=== PATIENT | male | born 1960 | race African-American/Black ===

== ENCOUNTER 2018-07-21 06:15 | Inpatient (IN) | payer BC ==
[~2018-07-21] VITALS: Ht 170.2 cm; Wt 81.2 kg
[2018-07-21] MEDS ORDERED: INDOCYANINE GREEN 25 MG VIAL IV ONE (07:25)
[2018-07-21] MEDS ORDERED: SKIN ADHESIVE 0.7 GM EA TOP ONE ×2 (07:25→07:26)
[2018-07-21] MEDS ORDERED: BUPIVACAINE HCL 0.5% (5MG/ML) 50ML ONE ×2 (07:26→11:06)
[2018-07-21] MEDS ORDERED: SODIUM CHLORIDE 0.9% 1,000 ML IV SCH (07:30)
[2018-07-21 07:37] LABS: CHLORIDE 104 mEq/L (98-107)
[2018-07-21 07:40] LABS: INR 1.1; PARTIAL THROMBOPLASTIN TIME 28.7 sec (23.4-31.0); PROTHROMBIN TIME 11.3 sec (9.1-11.1)
[2018-07-21] MEDS ORDERED: LEVOFLOXACIN 500MG PREMIX 100 ML IV ONE (08:29)
[2018-07-21] MEDS ORDERED: METRONIDAZOLE 500 MG PREMIX 100 ML IV ONE (08:29)
[2018-07-21] MEDS ORDERED: LIDOCAINE HCL 1% 20ML VIAL (Pyxis) INJ ONE (09:17)
[2018-07-21] MEDS ORDERED: SUCCINYLCHOLINE CHLORIDE 200MG/10ML IV ONE (09:17)
[2018-07-21] MEDS ORDERED: FENTANYL CITRATE/PF 50MCG/ML 2ML VIAL ONE (09:18)
[2018-07-21] MEDS ORDERED: ROCURONIUM BROMIDE 10MG/ML VIAL 5ML IV ONE ×3 (09:18→10:04)
[2018-07-21] MEDS ORDERED: MIDAZOLAM HCL 2 MG/2 ML VIAL ONE (09:18)
[2018-07-21] MEDS ORDERED: PROPOFOL 200MG/20ML VIAL IV ONE (09:18)
[2018-07-21] MEDS ORDERED: CARV25TA47 PO (09:39)
[2018-07-21] MEDS ORDERED: CHOL100044 PO (09:39)
[2018-07-21] MEDS ORDERED: AMLO1TAB98 PO (09:39)
[2018-07-21] MEDS ORDERED: DIGO250T81 PO (09:39)
[2018-07-21] MEDS ORDERED: LINA5TAB PO (09:39)
[2018-07-21] MEDS ORDERED: P20 PO (09:39)
[2018-07-21] MEDS ORDERED: POTA10TA11 PO (09:39)
[2018-07-21] MEDS ORDERED: RAMI10CA19 PO (09:39)
[2018-07-21] MEDS ORDERED: NEOSTIGMINE METHYLSULFATE 1MG/ML 10 ML VIAL ONE (10:11)
[2018-07-21] MEDS ORDERED: GLYCOPYRROLATE 0.2 MG/ML 2ML VIAL ONE (10:11)
[2018-07-21] MEDS ORDERED: EPHEDRINE SULFATE 50MG/ML VIAL ONE (10:17)
[2018-07-21] MEDS ORDERED: SODIUM CHLORIDE 0.9% 10ML VIAL ONE (10:17)
[2018-07-21] MEDS ORDERED: HYDROCORTISONE SOD SUCCINATE 100 MG/2 ML VIAL IV SCH (11:15)
[2018-07-21] MEDS ORDERED: HYDROCORTISONE SOD SUCCINATE 100 MG/2 ML VIAL ONE (11:23)
[2018-07-21] MEDS ORDERED: ACETAMINOPHEN 650MG SUPP PR PRN (12:15)
[2018-07-21] MEDS ORDERED: LEVOFLOXACIN 500MG PREMIX 100 ML IV SCH (12:15)
[2018-07-21] MEDS ORDERED: ONDANSETRON HCL 4MG/2ML INJ IV PRN (12:15)
[2018-07-21] MEDS ORDERED: HYDRALAZINE 20MG/ML VIAL IV SCH (12:30)
[2018-07-21] MEDS ORDERED: MORPHINE SULFATE 2 MG/ML CPJ (NOT FOR IM USE) IV PRN (12:30)
[2018-07-21] MEDS ORDERED: HYDRALAZINE 20MG/ML VIAL ONE (12:32)
[2018-07-21] MEDS ORDERED: MORPHINE SULFATE 4 MG/ML CPJ (NOT FOR IM USE) IV ONE (12:43)
[2018-07-21 14:15] LABS: BG BASE EXCESS -7.7 mmol/L (-2.0-2.0); BG CARBOXYHEMOGLOBIN 1.1 % (0.5-1.5); BG DEOXYHEMOGLOBIN 13.1 % (0.0-5.0); BG FRACTION INSPIRED OXYGEN 60; BG HCO3 ACT 21.9 mmol/L (22.0-26.0); BG METHEMOGLOBIN 0.5 % (0.0-1.5); BG OXYGEN SATURATION 86.7 % (92.0-98.5); BG OXYHEMOGLOBIN 85.3 % (94.0-97.0); BG PCO2 60.8 mmHg (35.0-45.0); BG PH 7.175 (7.350-7.450); BG PO2 61.1 mmHg (75.0-100.0); BG PRESSURE SUPPORT 5; BG SAMPLE SITE RIGHT RADIAL; BG TOTAL HEMOGLOBIN 17.2 g/dL (12.0-18.0); BG VENT MODE MASK - CPAP
[2018-07-21] MEDS ORDERED: MORPHINE SULFATE 4 MG/ML CPJ (NOT FOR IM USE) IV PRN (14:15)
[2018-07-21] MEDS ORDERED: INSULIN REGULAR (HUMULIN R) UD 100 UNITS/ML SYR SUBCUT ONE (15:45)
[2018-07-21 16:35] VITALS: BP 132/82
[2018-07-21 16:43] VITALS: BP 132/82
[2018-07-21] MEDS: DEXT 5%/0.45% NACL KCL 20MEQ/L 1,000 ML IV SCH (18:33)
[2018-07-21 19:25] LABS: HEMATOCRIT. 46.9 % (42.0-52.0); HEMOGLOBIN. 15.5 g/dL (14.0-18.0); MEAN CORPUSCULAR HEMOGLOBIN 29.3 pg (28.0-32.0); MEAN CORPUSCULAR VOLUME 88.8 fL (80.0-94.0); PLATELET 126 x1000/uL (130-400); RED BLOOD CELL COUNT 5.28 mill/uL (4.7-6.1); RED CELL DISTRIBUTION WIDTH 14.8 % (11.6-14.6)
[2018-07-21 19:53] LABS: PLATELET ESTIMATE DECREASED
[2018-07-21 20:00] VITALS: BP 118/72
[2018-07-21] MEDS: FAMOTIDINE 20MG/2ML VIAL IV SCH (20:31)
[2018-07-21] MEDS: METRONIDAZOLE 500 MG PREMIX 100 ML IV SCH (20:31)
[2018-07-22] VITALS: BP 130/61
[2018-07-22] MEDS: METRONIDAZOLE 500 MG PREMIX 100 ML IV SCH ×2 (01:52→08:38)
[2018-07-22 04:00] VITALS: BP 129/76
[2018-07-22] MEDS: DEXT 5%/0.45% NACL KCL 20MEQ/L 1,000 ML IV SCH (07:24)
[2018-07-22 08:00] VITALS: BP 136/74
[2018-07-22] MEDS: FAMOTIDINE 20MG/2ML VIAL IV SCH ×2 (08:38→20:41)
[2018-07-22 12:00] VITALS: BP 135/75
[2018-07-22] MEDS ORDERED: LINAGLIPTIN 5MG TABLET PO PRN (12:15)
[2018-07-22] MEDS: CARVEDILOL 25MG TABLET PO SCH ×3 (12:30→20:48)
[2018-07-22] MEDS: AMLODIPINE 10MG TABLET PO SCH (13:00)
[2018-07-22] MEDS: LISINOPRIL 40MG TABLET PO SCH (13:00)
[2018-07-22] MEDS: CHOLECALCIFEROL (D3) 1000 UNIT TABLET PO SCH (13:36)
[2018-07-22] MEDS: DIGOXIN 250MCG TABLET PO SCH (14:46)
[2018-07-22 16:00] VITALS: BP 144/78
[2018-07-22 20:00] VITALS: BP 142/80
[2018-07-22] MEDS: ATORVASTATIN CALCIUM 20MG TABLET PO SCH (20:41)
[2018-07-22] MEDS: MORPHINE SULFATE 4 MG/ML CPJ (NOT FOR IM USE) IV PRN (20:46)
[2018-07-23] VITALS: BP 135/79
[2018-07-23 03:37] VITALS: BP 122/74
[2018-07-23] MEDS: MORPHINE SULFATE 4 MG/ML CPJ (NOT FOR IM USE) IV PRN ×2 (03:39→20:59)
[2018-07-23 08:00] VITALS: BP 129/81
[2018-07-23] MEDS ORDERED: AMLODIPINE PO SCH (09:00)
[2018-07-23] MEDS ORDERED: [UNRECOGNIZED DRUG - OTHER] PO SCH (09:00)
[2018-07-23] MEDS ORDERED: ATORVASTATIN PO SCH (09:00)
[2018-07-23] MEDS ORDERED: MEDICATION NOT ON FORMULARY EA (Ramipril 10 MG) PO SCH (09:00)
[2018-07-23] MEDS: CARVEDILOL 25MG TABLET PO SCH ×3 (09:00→21:00)
[2018-07-23] MEDS: LISINOPRIL 40MG TABLET PO SCH (10:34)
[2018-07-23] MEDS: FAMOTIDINE 20MG/2ML VIAL IV SCH ×2 (10:34→20:59)
[2018-07-23] MEDS: AMLODIPINE 10MG TABLET PO SCH (10:35)
[2018-07-23] MEDS: CHOLECALCIFEROL (D3) 1000 UNIT TABLET PO SCH (10:37)
[2018-07-23] MEDS: DIGOXIN 250MCG TABLET PO SCH (10:37)
[2018-07-23 12:00] VITALS: BP 124/81
[2018-07-23 16:00] VITALS: BP 119/64
[2018-07-23 20:00] VITALS: BP 122/80
[2018-07-23] MEDS: ATORVASTATIN CALCIUM 20MG TABLET PO SCH (20:57)
[2018-07-24] VITALS: BP 121/73
[2018-07-24 04:00] VITALS: BP 115/64
[2018-07-24 08:04] VITALS: BP 114/72
[2018-07-24] MEDS ORDERED: POTASSIUM CHLORIDE 10MEQ TABLET SR PO SCH (09:00)
[2018-07-24] MEDS ORDERED: PREDNISONE 20MG TABLET PO SCH (09:00)
[2018-07-24] MEDS ORDERED: MEDICATION NOT ON FORMULARY EA (Potassium Chloride (Klor-Con 10) 10 MEQ) PO SCH (09:00)
[2018-07-24] MEDS: FAMOTIDINE 20MG/2ML VIAL IV SCH (09:16)
[2018-07-24] MEDS: CHOLECALCIFEROL (D3) 1000 UNIT TABLET PO SCH (09:16)
[2018-07-24] MEDS: CARVEDILOL 25MG TABLET PO SCH (09:18)
[2018-07-24] MEDS: AMLODIPINE 10MG TABLET PO SCH (09:35)
[2018-07-24 11:01] VITALS: BP 114/72
== END 2018-07-24 11:40 | disposition home or self-care (01) | DRG 334 ==
LOC: OR 06:15 → 8WST 06:16
PROVIDERS: ADMIT Surgery; ATTEND Surgery
PROC: 0DTP4ZZ Resection of Rectum, Percutaneous Endoscopic Approach (ICD-10-PCS; 2018-07-21)
PROC: 8E0W4CZ Robotic Assisted Procedure of Trunk Region, Percutaneous Endoscopic Approach (ICD-10-PCS; principal; 2018-07-21 09:30)
DX: C18.7 Malignant neoplasm of sigmoid colon (principal); E11.9 Type 2 diabetes mellitus without complications; K66.0 Peritoneal adhesions (postprocedural) (postinfection); Z95.810 Presence of automatic (implantable) cardiac defibrillator; Z79.899 Other long term (current) drug therapy
CPT/HCPCS: 36415; 36600; 80048; 82375; 82805; 82962; 85007; 85027; 86850; 86900; 88309; 88329; 94002; 97162; 97530; 97535; A4216; J0330; J0360; J1720; J1815; J1956; J2250; J2270; J2704; J2710; J3010; J3490; J7030; J7512; Q9957

== ENCOUNTER 2019-02-22 04:03 | Inpatient (IN) | payer BC ==
[2019-02-22] VITALS (27 sets, daily range): BP systolic 85–142; BP diastolic 54–94
[~2019-02-22] VITALS: Ht 172.7 cm; Wt 93.6 kg
[~2019-02-22 04:03] MED LIST: AMLO1TAB98 PO; CAPE500T15 PO; CARV25TA47 PO; CHOL100044 PO; DIGO250T81 PO; LINA5TAB PO; P20 PO; POTA10TA11 PO; RAMI10CA19 PO
[2019-02-22] MEDS ORDERED: ETOMIDATE 2MG/ML 10ML VIAL IV ONE ×2 (04:15→04:24)
[2019-02-22] MEDS ORDERED: FAMOTIDINE 20MG/2ML VIAL IV ONE (04:15)
[2019-02-22] MEDS ORDERED: METHYLPREDNISOLONE SOD SUCC 125 MG/2 ML VIAL IV ONE (04:15)
[2019-02-22] MEDS ORDERED: DIPHENHYDRAMINE 50MG/ML VIAL IV ONE (04:15)
[2019-02-22] MEDS ORDERED: SUCCINYLCHOLINE CHLORIDE 200MG/10ML IV ONE ×2 (04:15→04:24)
[2019-02-22] MEDS ORDERED: EPINEPHRINE 1:1000 1 MG/ML AMP IM ONE (04:15)
[2019-02-22] MEDS ORDERED: TRANEXAMIC ACID 1,000 MG/10 ML IV ONE (04:15)
[2019-02-22] MEDS ORDERED: VECURONIUM BROMIDE 10 MG/VIAL IV ONE (04:24)
[2019-02-22] MEDS ORDERED: SODIUM CHLORIDE 0.9% 10ML VIAL ONE (04:24)
[2019-02-22] MEDS ORDERED: LORAZEPAM 2MG/ML CPJ IV ONE (04:30)
[2019-02-22] MEDS: PROPOFOL 10MG/ML 100ML 100 ML IV SCH ×3 (04:34→18:20)
[2019-02-22] MEDS ORDERED: SODIUM CHLORIDE 0.9% 500 ML IV ONE (04:45)
[2019-02-22 04:47] LABS: HEMATOCRIT. 46.9 % (42.0-52.0); HEMOGLOBIN. 15.7 g/dL (14.0-18.0); MEAN CORPUSCULAR HEMOGLOBIN 29.9 pg (28.0-32.0); MEAN CORPUSCULAR VOLUME 89.3 fL (80.0-94.0); MEAN PLATELET VOLUME 9.4 fl (7.4-10.4); PLATELET 96 x1000/uL (130-400); RED BLOOD CELL COUNT 5.25 mill/uL (4.7-6.1)
[2019-02-22 04:51] LABS: CHLORIDE 104 mEq/L (98-107)
[2019-02-22] MEDS ORDERED: MIDAZOLAM HCL 2 MG/2 ML VIAL IV ONE (05:15)
[2019-02-22] MEDS ORDERED: MIDAZOLAM HCL 50 MG in DEXTROSE 5% WATER 40 ML IV ONE ×3 (05:15→14:45)
[2019-02-22 05:22] LABS: BG CARBOXYHEMOGLOBIN 1.6 % (0.5-1.5); BG DEOXYHEMOGLOBIN 1.2 % (0.0-5.0); BG FRACTION INSPIRED OXYGEN 40; BG HCO3 ACT 20.3 mmol/L (22.0-26.0); BG METHEMOGLOBIN 0.3 % (0.0-1.5); BG OXYGEN SATURATION 98.8 % (92.0-98.5); BG OXYHEMOGLOBIN 96.9 % (94.0-97.0); BG PCO2 31.9 mmHg (35.0-45.0); BG PH 7.422 (7.350-7.450); BG PO2 153.7 mmHg (75.0-100.0); BG SAMPLE SITE LEFT RADIAL; BG TIDAL VOLUME(mL) 550 mL; BG TOTAL HEMOGLOBIN 15.2 g/dL (12.0-18.0); BG VENT MODE VENT - A/C; BG VENT RATE 12 set
[2019-02-22] MEDS ORDERED: FENTANYL CITRATE/PF 500 MCG in SODIUM CHLORIDE 0.9% 40 ML IV PRN ×2 (06:00→13:30)
[2019-02-22] MEDS ORDERED: ASPIRIN 300MG SUPP PR ONE (06:00)
[2019-02-22] MEDS ORDERED: FENTANYL CITRATE/PF 500 MCG in SODIUM CHLORIDE 0.9% 40 ML IV ONE ×3 (06:03→14:45)
[2019-02-22 07:02] LABS: PLATELET ESTIMATE SLIGHTLY DECREASED
[2019-02-22] MEDS ORDERED: MORPHINE SULFATE 2 MG/ML CPJ (NOT FOR IM USE) IV PRN (07:30)
[2019-02-22] MEDS: IPRATROPIUM/ALBUTEROL 0.5-3(2.5)MG/3ML NEB HHN SCH ×5 (07:30→20:29)
[2019-02-22] MEDS ORDERED: GUAIFENESIN 200MG/10ML SUGAR FREE UDC PO PRN (07:30)
[2019-02-22] MEDS ORDERED: CLONIDINE 0.1MG TABLET PO PRN (07:30)
[2019-02-22] MEDS ORDERED: DOCUSATE SODIUM 100MG CAPSULE PO PRN (07:30)
[2019-02-22] MEDS: DEXT 5%/LACTATED RINGERS 1,000 ML IV SCH ×2 (07:30→19:13)
[2019-02-22] MEDS ORDERED: IPRATROPIUM/ALBUTEROL 0.5-3(2.5)MG/3ML NEB INH PRN (07:30)
[2019-02-22] MEDS ORDERED: ONDANSETRON HCL 4MG/2ML INJ IV PRN (07:30)
[2019-02-22] MEDS ORDERED: MAGNESIUM/ALUMINUM HYDROXIDE/SIMETHICONE 30ML UDC PO PRN (07:30)
[2019-02-22] MEDS ORDERED: ACETAMINOPHEN 325MG TABLET PO PRN (07:30)
[2019-02-22] MEDS: FAMOTIDINE 20MG/2ML VIAL IV SCH ×2 (09:00→20:38)
[2019-02-22] MEDS ORDERED: ASPIRIN 325MG EC TABLET PO SCH ×2 (09:00→18:00)
[2019-02-22] MEDS: BLOOD SUGAR DIAGNOSTIC STRIP TEST SCH ×3 (09:52→17:00)
[2019-02-22] MEDS: INSULIN LISPRO 100 UNITS/ML SUBCUT SCH ×2 (10:47→13:20)
[2019-02-22] MEDS: INSULIN GLARGINE UD 100 UNITS/ML SYR SUBCUT SCH (11:11)
[2019-02-22] MEDS: NITROGLYCERIN OINT 1GM/INCH UDPKT TD SCH ×2 (14:00→21:03)
[2019-02-22] MEDS ORDERED: METHYLPREDNISOLONE SOD SUCC 125 MG/2 ML VIAL IV SCH (14:15)
[2019-02-22] MEDS ORDERED: ENOXAPARIN 100MG/ML SYR SUBCUT SCH (18:00)
[2019-02-22] MEDS ORDERED: LINA5TAB PO (18:45)
[2019-02-22] MEDS ORDERED: CALC-769 MT (18:45)
[2019-02-22] MEDS ORDERED: [UNRECOGNIZED DRUG - CODE] PO (18:45)
[2019-02-22] MEDS ORDERED: ACET-2708 PO (18:45)
[2019-02-22] MEDS ORDERED: CHOL200074 PO (18:45)
[2019-02-22] MEDS ORDERED: UBID150C PO (18:45)
[2019-02-22] MEDS ORDERED: TAMS-11 PO (18:45)
[2019-02-22] MEDS ORDERED: ASPI-1393 PO (18:45)
[2019-02-22] MEDS ORDERED: MULT-1203 MT (18:45)
[2019-02-22 20:04] LABS: INR 1.1; PROTHROMBIN TIME 11.4 sec (9.6-11.0)
[2019-02-22] MEDS: ASPIRIN 325MG TABLET PO SCH (20:39)
[2019-02-22] MEDS: ENOXAPARIN 100MG/ML SYR SUBCUT SCH (20:39)
[2019-02-22] MEDS: METHYLPREDNISOLONE SOD SUCC 125 MG/2 ML VIAL IV SCH (21:04)
[2019-02-23] VITALS (90 sets, daily range): BP systolic 81–135; BP diastolic 50–105
[2019-02-23] MEDS: INSULIN LISPRO 100 UNITS/ML SUBCUT SCH ×4 (00:26→17:57)
[2019-02-23] MEDS: IPRATROPIUM/ALBUTEROL 0.5-3(2.5)MG/3ML NEB HHN SCH ×6 (00:35→20:00)
[2019-02-23] MEDS: PROPOFOL 10MG/ML 100ML 100 ML IV SCH ×2 (04:53→11:58)
[2019-02-23] MEDS: BLOOD SUGAR DIAGNOSTIC STRIP TEST SCH ×4 (05:02→17:54)
[2019-02-23 05:03] LABS: HEMATOCRIT. 42.2 % (42.0-52.0); MEAN CORPUSCULAR HEMOGLOBIN 30.2 pg (28.0-32.0); MEAN CORPUSCULAR VOLUME 91.2 fL (80.0-94.0); MEAN PLATELET VOLUME 9.5 fl (7.4-10.4); PLATELET 79 x1000/uL (130-400); RED BLOOD CELL COUNT 4.62 mill/uL (4.7-6.1)
[2019-02-23] MEDS: NITROGLYCERIN OINT 1GM/INCH UDPKT TD SCH ×3 (05:03→21:17)
[2019-02-23] MEDS: METHYLPREDNISOLONE SOD SUCC 125 MG/2 ML VIAL IV SCH (05:06)
[2019-02-23] MEDS: ENOXAPARIN 100MG/ML SYR SUBCUT SCH (05:08)
[2019-02-23 08:05] LABS: PLATELET ESTIMATE DECREASED
[2019-02-23 08:12] LABS: BG BASE EXCESS -0.8 mmol/L (-2.0-2.0); BG CARBOXYHEMOGLOBIN 0.3 % (0.5-1.5); BG DEOXYHEMOGLOBIN 2.8 % (0.0-5.0); BG FRACTION INSPIRED OXYGEN 40; BG HCO3 ACT 23.5 mmol/L (22.0-26.0); BG METHEMOGLOBIN 1.1 % (0.0-1.5); BG OXYGEN SATURATION 97.2 % (92.0-98.5); BG OXYHEMOGLOBIN 95.8 % (94.0-97.0); BG PCO2 37.9 mmHg (35.0-45.0); BG PO2 98.2 mmHg (75.0-100.0); BG SAMPLE SITE RIGHT RADIAL; BG TIDAL VOLUME(mL) 550 mL; BG TOTAL HEMOGLOBIN 14.7 g/dL (12.0-18.0); BG VENT MODE VENT - A/C; BG VENT RATE 12 set
[2019-02-23] MEDS: ASPIRIN 325MG TABLET PO SCH (10:12)
[2019-02-23] MEDS: FAMOTIDINE 20MG/2ML VIAL IV SCH ×2 (10:12→21:16)
[2019-02-23] MEDS: CEFEPIME 1,000 MG in DEXTROSE 5% WATER 50 ML IV SCH ×2 (11:03→23:52)
[2019-02-23] MEDS: FLUCONAZOLE 200 MG/100ML BAG 100 ML IV SCH (11:04)
[2019-02-23] MEDS: METRONIDAZOLE 500 MG PREMIX 100 ML IV SCH ×2 (11:04→17:37)
[2019-02-23] MEDS: DEXT 5%/LACTATED RINGERS 1,000 ML IV SCH (11:05)
[2019-02-23] MEDS: METHYLPREDNISOLONE SOD SUCC 40 MG/ML VIAL IV SCH ×2 (11:57→17:37)
[2019-02-23 12:42] LABS: CHLORIDE 106 mEq/L (98-107)
[2019-02-23] MEDS: AZITHROMYCIN 500MG in DEXTROSE 5% WATER 250ML IV SCH (13:24)
[2019-02-23] MEDS: INSULIN GLARGINE UD 100 UNITS/ML SYR SUBCUT SCH (13:24)
[2019-02-23] MEDS: PROPOFOL 10MG/ML 100ML 100 ML IV PRN ×2 (17:29→21:23)
[2019-02-23] MEDS: MONTELUKAST SODIUM 10MG TABLET NG SCH (17:37)
[2019-02-24] VITALS (96 sets, daily range): BP systolic 87–178; BP diastolic 39–106
[2019-02-24] MEDS: METHYLPREDNISOLONE SOD SUCC 40 MG/ML VIAL IV SCH ×5 (00:02→23:35)
[2019-02-24] MEDS: BLOOD SUGAR DIAGNOSTIC STRIP TEST SCH ×5 (00:08→23:36)
[2019-02-24] MEDS: INSULIN LISPRO 100 UNITS/ML SUBCUT SCH ×5 (00:13→23:35)
[2019-02-24] MEDS: PROPOFOL 10MG/ML 100ML 100 ML IV PRN ×3 (01:44→10:28)
[2019-02-24] MEDS: METRONIDAZOLE 500 MG PREMIX 100 ML IV SCH ×3 (01:45→17:59)
[2019-02-24] MEDS: IPRATROPIUM/ALBUTEROL 0.5-3(2.5)MG/3ML NEB HHN SCH ×6 (04:09→21:01)
[2019-02-24] MEDS: NITROGLYCERIN OINT 1GM/INCH UDPKT TD SCH ×3 (06:08→22:39)
[2019-02-24] MEDS: FAMOTIDINE 20MG/2ML VIAL IV SCH ×2 (08:29→21:53)
[2019-02-24] MEDS: AZITHROMYCIN 500MG in DEXTROSE 5% WATER 250ML IV SCH (08:29)
[2019-02-24] MEDS: ASPIRIN 325MG TABLET PO SCH (08:29)
[2019-02-24 08:45] LABS: CHLORIDE 107 mEq/L (98-107)
[2019-02-24 08:49] LABS: HEMATOCRIT. 40.8 % (42.0-52.0); HEMOGLOBIN. 13.8 g/dL (14.0-18.0); MEAN CORPUSCULAR HEMOGLOBIN 30.1 pg (28.0-32.0); MEAN CORPUSCULAR VOLUME 88.6 fL (80.0-94.0); MEAN PLATELET VOLUME 9.3 fl (7.4-10.4); PLATELET 92 x1000/uL (130-400); RED BLOOD CELL COUNT 4.61 mill/uL (4.7-6.1); RED CELL DISTRIBUTION WIDTH 15.7 % (11.6-14.6)
[2019-02-24] MEDS: CEFEPIME 1,000 MG in DEXTROSE 5% WATER 50 ML IV SCH ×2 (11:53→22:39)
[2019-02-24] MEDS: FLUCONAZOLE 200 MG/100ML BAG 100 ML IV SCH (11:54)
[2019-02-24] MEDS: CARVEDILOL 6.25 MG TABLET NG SCH ×2 (12:00→21:54)
[2019-02-24 12:29] LABS: PLATELET ESTIMATE SLIGHTLY DECREASED
[2019-02-24 12:54] LABS: BG BASE EXCESS -1.1 mmol/L (-2.0-2.0); BG CARBOXYHEMOGLOBIN 0.7 % (0.5-1.5); BG DEOXYHEMOGLOBIN 3.2 % (0.0-5.0); BG FRACTION INSPIRED OXYGEN 40; BG HCO3 ACT 22.9 mmol/L (22.0-26.0); BG METHEMOGLOBIN 0.4 % (0.0-1.5); BG OXYGEN SATURATION 96.8 % (92.0-98.5); BG OXYHEMOGLOBIN 95.7 % (94.0-97.0); BG PCO2 35.9 mmHg (35.0-45.0); BG PH 7.422 (7.350-7.450); BG PO2 84.8 mmHg (75.0-100.0); BG PRESSURE SUPPORT 8; BG SAMPLE SITE RIGHT BRACHIAL; BG TOTAL HEMOGLOBIN 14.2 g/dL (12.0-18.0); BG VENT MODE VENT - CPAP
[2019-02-24] MEDS: INSULIN GLARGINE UD 100 UNITS/ML SYR SUBCUT SCH (14:09)
[2019-02-24] MEDS: FENTANYL CITRATE/PF 500 MCG in SODIUM CHLORIDE 0.9% 40 ML IV PRN ×2 (15:11→22:27)
[2019-02-24] MEDS: MIDAZOLAM HCL 100 MG in DEXT 5% WATER 80 ML IV PRN (15:11)
[2019-02-24] MEDS: MONTELUKAST SODIUM 10MG TABLET NG SCH (17:58)
[2019-02-25] VITALS (90 sets, daily range): BP systolic 97–141; BP diastolic 52–84
[2019-02-25] MEDS: IPRATROPIUM/ALBUTEROL 0.5-3(2.5)MG/3ML NEB HHN SCH ×6 (00:24→20:26)
[2019-02-25] MEDS: METRONIDAZOLE 500 MG PREMIX 100 ML IV SCH ×3 (02:16→19:01)
[2019-02-25] MEDS: METHYLPREDNISOLONE SOD SUCC 40 MG/ML VIAL IV SCH ×3 (05:56→19:02)
[2019-02-25] MEDS: MIDAZOLAM HCL 100 MG in DEXT 5% WATER 80 ML IV PRN ×3 (05:56→19:03)
[2019-02-25] MEDS: FENTANYL CITRATE/PF 500 MCG in SODIUM CHLORIDE 0.9% 40 ML IV PRN ×2 (05:56→11:00)
[2019-02-25] MEDS: NITROGLYCERIN OINT 1GM/INCH UDPKT TD SCH ×3 (05:57→21:06)
[2019-02-25 06:10] LABS: HEMATOCRIT. 40.2 % (42.0-52.0); HEMOGLOBIN. 13.7 g/dL (14.0-18.0); MEAN CORPUSCULAR HEMOGLOBIN 30.1 pg (28.0-32.0); MEAN CORPUSCULAR VOLUME 88.5 fL (80.0-94.0); MEAN PLATELET VOLUME 8.9 fl (7.4-10.4); PLATELET 82 x1000/uL (130-400); RED BLOOD CELL COUNT 4.54 mill/uL (4.7-6.1); RED CELL DISTRIBUTION WIDTH 15.6 % (11.6-14.6)
[2019-02-25] MEDS: BLOOD SUGAR DIAGNOSTIC STRIP TEST SCH ×3 (06:16→18:49)
[2019-02-25] MEDS: INSULIN LISPRO 100 UNITS/ML SUBCUT SCH ×3 (06:23→19:03)
[2019-02-25 06:30] LABS: CHLORIDE 109 mEq/L (98-107)
[2019-02-25 06:39] LABS: PLATELET ESTIMATE DECREASED
[2019-02-25] MEDS: CARVEDILOL 6.25 MG TABLET NG SCH ×3 (08:55→21:07)
[2019-02-25] MEDS: ASPIRIN 325MG TABLET PO SCH (08:55)
[2019-02-25] MEDS: AZITHROMYCIN 500MG in DEXTROSE 5% WATER 250ML IV SCH (08:55)
[2019-02-25] MEDS: FAMOTIDINE 20MG/2ML VIAL IV SCH ×2 (08:55→21:07)
[2019-02-25] MEDS: CEFEPIME 1,000 MG in DEXTROSE 5% WATER 50 ML IV SCH (11:00)
[2019-02-25] MEDS: INSULIN GLARGINE UD 100 UNITS/ML SYR SUBCUT SCH (11:30)
[2019-02-25] MEDS: METOCLOPRAMIDE HCL 10MG/2ML VIAL IV SCH ×2 (12:17→19:01)
[2019-02-25] MEDS: FLUCONAZOLE 200 MG/100ML BAG 100 ML IV SCH (15:06)
[2019-02-25] MEDS: MONTELUKAST SODIUM 10MG TABLET NG SCH (19:01)
[2019-02-26] VITALS (86 sets, daily range): BP systolic 93–138; BP diastolic 33–88
[2019-02-26] MEDS: METOCLOPRAMIDE HCL 10MG/2ML VIAL IV SCH ×4 (00:21→17:48)
[2019-02-26] MEDS: CEFEPIME 1,000 MG in DEXTROSE 5% WATER 50 ML IV SCH ×3 (00:21→22:25)
[2019-02-26] MEDS: METHYLPREDNISOLONE SOD SUCC 40 MG/ML VIAL IV SCH ×2 (00:22→05:28)
[2019-02-26] MEDS: BLOOD SUGAR DIAGNOSTIC STRIP TEST SCH ×4 (00:25→17:48)
[2019-02-26] MEDS: INSULIN LISPRO 100 UNITS/ML SUBCUT SCH ×4 (00:36→17:53)
[2019-02-26] MEDS: IPRATROPIUM/ALBUTEROL 0.5-3(2.5)MG/3ML NEB HHN SCH ×6 (00:54→20:07)
[2019-02-26] MEDS: METRONIDAZOLE 500 MG PREMIX 100 ML IV SCH ×3 (04:36→17:48)
[2019-02-26] MEDS: FENTANYL CITRATE/PF 500 MCG in SODIUM CHLORIDE 0.9% 40 ML IV PRN (05:06)
[2019-02-26] MEDS: NITROGLYCERIN OINT 1GM/INCH UDPKT TD SCH ×3 (05:29→21:46)
[2019-02-26 07:39] LABS: BG BASE EXCESS 0.6 mmol/L (-2.0-2.0); BG CARBOXYHEMOGLOBIN 0.3 % (0.5-1.5); BG HCO3 ACT 24.8 mmol/L (22.0-26.0); BG METHEMOGLOBIN 0.2 % (0.0-1.5); BG OXYHEMOGLOBIN 96.5 % (94.0-97.0); BG PCO2 38.4 mmHg (35.0-45.0); BG PH 7.428 (7.350-7.450); BG SAMPLE SITE RIGHT RADIAL; BG TIDAL VOLUME(mL) 550 mL; BG TOTAL HEMOGLOBIN 13.7 g/dL (12.0-18.0); BG VENT MODE VENT - A/C; BG VENT RATE 12 set
[2019-02-26] MEDS ORDERED: FUROSEMIDE 40MG/4ML VIAL IVP NR (09:00)
[2019-02-26] MEDS: AZITHROMYCIN 500MG in DEXTROSE 5% WATER 250ML IV SCH (09:00)
[2019-02-26] MEDS: CARVEDILOL 6.25 MG TABLET NG SCH ×2 (10:34→21:00)
[2019-02-26] MEDS: ASPIRIN 325MG TABLET PO SCH (10:34)
[2019-02-26] MEDS: FAMOTIDINE 20MG/2ML VIAL IV SCH ×2 (10:35→21:45)
[2019-02-26] MEDS: FLUCONAZOLE 200 MG/100ML BAG 100 ML IV SCH (12:00)
[2019-02-26] MEDS: INSULIN GLARGINE UD 100 UNITS/ML SYR SUBCUT SCH (12:28)
[2019-02-26] MEDS: METHYLPREDNISOLONE SOD SUCC 125 MG/2 ML VIAL IV SCH ×2 (14:00→21:45)
[2019-02-26] MEDS: MONTELUKAST SODIUM 10MG TABLET NG SCH (17:48)
[2019-02-26] MEDS: MIDAZOLAM HCL 100 MG in DEXT 5% WATER 80 ML IV PRN (18:00)
[2019-02-27] VITALS (76 sets, daily range): BP systolic 79–141; BP diastolic 44–94
[2019-02-27] MEDS: IPRATROPIUM/ALBUTEROL 0.5-3(2.5)MG/3ML NEB HHN SCH ×6 (00:07→20:12)
[2019-02-27] MEDS: BLOOD SUGAR DIAGNOSTIC STRIP TEST SCH ×5 (00:16→23:28)
[2019-02-27] MEDS: METOCLOPRAMIDE HCL 10MG/2ML VIAL IV SCH ×4 (00:21→17:22)
[2019-02-27] MEDS: METRONIDAZOLE 500 MG PREMIX 100 ML IV SCH ×3 (02:29→17:19)
[2019-02-27 04:53] LABS: HEMATOCRIT. 38.5 % (42.0-52.0); MEAN PLATELET VOLUME 9.5 fl (7.4-10.4); PLATELET 90 x1000/uL (130-400); RED BLOOD CELL COUNT 4.33 mill/uL (4.7-6.1); RED CELL DISTRIBUTION WIDTH 16.4 % (11.6-14.6)
[2019-02-27 04:56] LABS: CHLORIDE 110 mEq/L (98-107)
[2019-02-27] MEDS: NITROGLYCERIN OINT 1GM/INCH UDPKT TD SCH (05:28)
[2019-02-27] MEDS: METHYLPREDNISOLONE SOD SUCC 125 MG/2 ML VIAL IV SCH ×3 (06:31→22:27)
[2019-02-27] MEDS: INSULIN LISPRO 100 UNITS/ML SUBCUT SCH ×4 (06:32→17:20)
[2019-02-27 07:13] LABS: NUCLEATED RED BLOOD CELLS 1 /100 WBC
[2019-02-27 07:14] LABS: PLATELET ESTIMATE DECREASED
[2019-02-27] MEDS: AZITHROMYCIN 500MG in DEXTROSE 5% WATER 250ML IV SCH (08:01)
[2019-02-27] MEDS: FAMOTIDINE 20MG/2ML VIAL IV SCH ×2 (08:01→21:01)
[2019-02-27] MEDS: ASPIRIN 325MG TABLET PO SCH (08:01)
[2019-02-27] MEDS: CARVEDILOL 6.25 MG TABLET NG SCH ×2 (08:13→21:01)
[2019-02-27] MEDS: INSULIN GLARGINE UD 100 UNITS/ML SYR SUBCUT SCH (09:18)
[2019-02-27] MEDS: FENTANYL CITRATE/PF 500 MCG in SODIUM CHLORIDE 0.9% 40 ML IV PRN (09:39)
[2019-02-27] MEDS ORDERED: POTASSIUM CHLORIDE INJ 40 MEQ in DEXT 5% WATER 250 ML IV SCH (10:00)
[2019-02-27] MEDS: CEFEPIME 1,000 MG in DEXTROSE 5% WATER 50 ML IV SCH ×2 (10:08→22:27)
[2019-02-27] MEDS: FLUCONAZOLE 200 MG/100ML BAG 100 ML IV SCH (11:04)
[2019-02-27] MEDS: MONTELUKAST SODIUM 10MG TABLET NG SCH (17:19)
[2019-02-28] VITALS (94 sets, daily range): BP systolic 84–151; BP diastolic 47–98
[2019-02-28] MEDS: METOCLOPRAMIDE HCL 10MG/2ML VIAL IV SCH ×5 (00:01→23:32)
[2019-02-28] MEDS: MIDAZOLAM HCL 100 MG in DEXT 5% WATER 80 ML IV PRN (00:01)
[2019-02-28] MEDS: INSULIN LISPRO 100 UNITS/ML SUBCUT SCH ×4 (00:02→17:32)
[2019-02-28] MEDS: IPRATROPIUM/ALBUTEROL 0.5-3(2.5)MG/3ML NEB HHN SCH ×3 (00:16→08:15)
[2019-02-28] MEDS: METRONIDAZOLE 500 MG PREMIX 100 ML IV SCH ×3 (02:09→17:31)
[2019-02-28 05:40] LABS: CHLORIDE 109 mEq/L (98-107); HEMATOCRIT. 41.4 % (42.0-52.0); HEMOGLOBIN. 13.9 g/dL (14.0-18.0); MEAN CORPUSCULAR HEMOGLOBIN 29.9 pg (28.0-32.0); MEAN PLATELET VOLUME 9.4 fl (7.4-10.4); PLATELET 88 x1000/uL (130-400); RED BLOOD CELL COUNT 4.65 mill/uL (4.7-6.1); RED CELL DISTRIBUTION WIDTH 16.7 % (11.6-14.6)
[2019-02-28] MEDS: BLOOD SUGAR DIAGNOSTIC STRIP TEST SCH ×4 (06:02→23:29)
[2019-02-28] MEDS: METHYLPREDNISOLONE SOD SUCC 125 MG/2 ML VIAL IV SCH ×3 (06:06→21:33)
[2019-02-28 07:43] LABS: BG BASE EXCESS 2.8 mmol/L (-2.0-2.0); BG CARBOXYHEMOGLOBIN 0.7 % (0.5-1.5); BG DEOXYHEMOGLOBIN 3.9 % (0.0-5.0); BG HCO3 ACT 26.2 mmol/L (22.0-26.0); BG METHEMOGLOBIN 0.3 % (0.0-1.5); BG OXYGEN SATURATION 96.1 % (92.0-98.5); BG OXYHEMOGLOBIN 95.1 % (94.0-97.0); BG PCO2 36.6 mmHg (35.0-45.0); BG PH 7.473 (7.350-7.450); BG PO2 79.2 mmHg (75.0-100.0); BG SAMPLE SITE RIGHT RADIAL; BG TIDAL VOLUME(mL) 550 mL; BG TOTAL HEMOGLOBIN 14.3 g/dL (12.0-18.0); BG VENT MODE VENT - A/C; BG VENT RATE 12 set
[2019-02-28] MEDS: AZITHROMYCIN 500MG in DEXTROSE 5% WATER 250ML IV SCH (08:39)
[2019-02-28] MEDS: FAMOTIDINE 20MG/2ML VIAL IV SCH ×2 (08:40→20:43)
[2019-02-28] MEDS: CARVEDILOL 3.125 MG TABLET NG SCH ×2 (08:40→20:36)
[2019-02-28] MEDS: ASPIRIN 325MG TABLET PO SCH (08:40)
[2019-02-28] MEDS: INSULIN GLARGINE UD 100 UNITS/ML SYR SUBCUT SCH (09:27)
[2019-02-28 09:50] LABS: PLATELET ESTIMATE DECREASED
[2019-02-28] MEDS: FENTANYL CITRATE/PF 500 MCG in SODIUM CHLORIDE 0.9% 40 ML IV PRN ×2 (10:38→22:04)
[2019-02-28] MEDS: CEFEPIME 1,000 MG in DEXTROSE 5% WATER 50 ML IV SCH ×2 (10:38→23:32)
[2019-02-28] MEDS ORDERED: ALBUTEROL (0.083%) 2.5MG/3ML NEB HHN PRN (10:45)
[2019-02-28] MEDS: FLUCONAZOLE 200 MG/100ML BAG 100 ML IV SCH (12:10)
[2019-02-28] MEDS: ACETYLCYSTEINE 100MG/ML 10% VIAL 4ML INH SCH ×2 (12:35→23:54)
[2019-02-28] MEDS: ALBUTEROL (0.083%) 2.5MG/3ML NEB HHN SCH ×4 (12:35→23:54)
[2019-02-28] MEDS: MONTELUKAST SODIUM 10MG TABLET NG SCH (16:16)
[2019-03-01] VITALS (95 sets, daily range): BP systolic 78–177; BP diastolic 42–106
[2019-03-01] MEDS: INSULIN LISPRO 100 UNITS/ML SUBCUT SCH ×4 (00:15→17:47)
[2019-03-01] MEDS: METRONIDAZOLE 500 MG PREMIX 100 ML IV SCH ×3 (01:20→17:43)
[2019-03-01] MEDS: ALBUTEROL (0.083%) 2.5MG/3ML NEB HHN SCH ×5 (03:54→20:29)
[2019-03-01] MEDS: BLOOD SUGAR DIAGNOSTIC STRIP TEST SCH ×3 (05:32→17:44)
[2019-03-01] MEDS: METOCLOPRAMIDE HCL 10MG/2ML VIAL IV SCH ×4 (05:42→23:15)
[2019-03-01] MEDS: METHYLPREDNISOLONE SOD SUCC 125 MG/2 ML VIAL IV SCH ×3 (05:42→22:08)
[2019-03-01 07:16] LABS: BG BASE EXCESS 2.2 mmol/L (-2.0-2.0); BG CARBOXYHEMOGLOBIN 0.4 % (0.5-1.5); BG DEOXYHEMOGLOBIN 2.9 % (0.0-5.0); BG METHEMOGLOBIN 0.2 % (0.0-1.5); BG OXYGEN SATURATION 97.1 % (92.0-98.5); BG OXYHEMOGLOBIN 96.5 % (94.0-97.0); BG PCO2 42.6 mmHg (35.0-45.0); BG SAMPLE SITE RIGHT RADIAL; BG TIDAL VOLUME(mL) 550 mL; BG TOTAL HEMOGLOBIN 14.4 g/dL (12.0-18.0); BG VENT MODE VENT - A/C; BG VENT RATE 12 set
[2019-03-01] MEDS: AZITHROMYCIN 500MG in DEXTROSE 5% WATER 250ML IV SCH (08:41)
[2019-03-01] MEDS: ACETYLCYSTEINE 100MG/ML 10% VIAL 4ML INH SCH ×2 (08:45→17:02)
[2019-03-01] MEDS: CARVEDILOL 3.125 MG TABLET NG SCH ×2 (08:52→20:17)
[2019-03-01] MEDS: FAMOTIDINE 20MG/2ML VIAL IV SCH ×2 (10:03→20:38)
[2019-03-01] MEDS: ASPIRIN 325MG TABLET PO SCH (10:03)
[2019-03-01] MEDS: INSULIN GLARGINE UD 100 UNITS/ML SYR SUBCUT SCH ×2 (10:12→22:09)
[2019-03-01] MEDS: CEFEPIME 1,000 MG in DEXTROSE 5% WATER 50 ML IV SCH ×2 (11:15→23:15)
[2019-03-01] MEDS ORDERED: LORAZEPAM 2MG/ML CPJ IV PRN (11:30)
[2019-03-01] MEDS: FLUCONAZOLE 200 MG/100ML BAG 100 ML IV SCH (12:32)
[2019-03-01 14:11] LABS: BG BASE EXCESS 1.6 mmol/L (-2.0-2.0); BG CARBOXYHEMOGLOBIN 0.6 % (0.5-1.5); BG DEOXYHEMOGLOBIN 6.6 % (0.0-5.0); BG FRACTION INSPIRED OXYGEN 40; BG HCO3 ACT 25.6 mmol/L (22.0-26.0); BG METHEMOGLOBIN 0.2 % (0.0-1.5); BG OXYGEN SATURATION 93.3 % (92.0-98.5); BG OXYHEMOGLOBIN 92.6 % (94.0-97.0); BG PCO2 38.3 mmHg (35.0-45.0); BG PH 7.443 (7.350-7.450); BG PO2 66.2 mmHg (75.0-100.0); BG PRESSURE SUPPORT 14; BG SAMPLE SITE RIGHT RADIAL; BG TIDAL VOLUME(mL) 550 mL; BG TOTAL HEMOGLOBIN 16.1 g/dL (12.0-18.0); BG VENT MODE VENT - SIMV; BG VENT RATE 8 set
[2019-03-01] MEDS ORDERED: MIDAZOLAM HCL 50 MG in DEXTROSE 5% WATER 40 ML IV PRN (15:00)
[2019-03-01] MEDS: MIDAZOLAM HCL 100 MG in DEXT 5% WATER 80 ML IV PRN (15:10)
[2019-03-01] MEDS: FENTANYL CITRATE/PF 500 MCG in SODIUM CHLORIDE 0.9% 40 ML IV PRN ×2 (15:12→23:57)
[2019-03-01] MEDS: MONTELUKAST SODIUM 10MG TABLET NG SCH (17:43)
[2019-03-01] MEDS: FUROSEMIDE 20MG/2ML VIAL IVP SCH (19:34)
[2019-03-02] VITALS (105 sets, daily range): BP systolic 78–182; BP diastolic 41–129
[2019-03-02] MEDS: BLOOD SUGAR DIAGNOSTIC STRIP TEST SCH ×4 (00:03→17:27)
[2019-03-02] MEDS: INSULIN LISPRO 100 UNITS/ML SUBCUT SCH ×4 (00:09→17:26)
[2019-03-02] MEDS: ACETYLCYSTEINE 100MG/ML 10% VIAL 4ML INH SCH ×3 (01:00→16:50)
[2019-03-02] MEDS: ALBUTEROL (0.083%) 2.5MG/3ML NEB HHN SCH ×6 (01:00→20:58)
[2019-03-02] MEDS: METRONIDAZOLE 500 MG PREMIX 100 ML IV SCH ×3 (01:36→17:26)
[2019-03-02] MEDS: METOCLOPRAMIDE HCL 10MG/2ML VIAL IV SCH ×3 (05:09→17:25)
[2019-03-02] MEDS: METHYLPREDNISOLONE SOD SUCC 125 MG/2 ML VIAL IV SCH (05:09)
[2019-03-02] MEDS: FAMOTIDINE 20MG/2ML VIAL IV SCH ×2 (07:52→21:24)
[2019-03-02] MEDS: ASPIRIN 325MG TABLET PO SCH (07:52)
[2019-03-02] MEDS: FUROSEMIDE 20MG/2ML VIAL IVP SCH ×2 (07:53→16:27)
[2019-03-02] MEDS: AZITHROMYCIN 500MG in DEXTROSE 5% WATER 250ML IV SCH (07:53)
[2019-03-02] MEDS: CARVEDILOL 3.125 MG TABLET NG SCH ×3 (08:08→21:24)
[2019-03-02] MEDS: FENTANYL CITRATE/PF 500 MCG in SODIUM CHLORIDE 0.9% 40 ML IV PRN (08:08)
[2019-03-02 08:55] LABS: HEMATOCRIT. 43.3 % (42.0-52.0); HEMOGLOBIN. 14.6 g/dL (14.0-18.0); MEAN CORPUSCULAR HEMOGLOBIN 30.3 pg (28.0-32.0); MEAN CORPUSCULAR VOLUME 89.5 fL (80.0-94.0); MEAN PLATELET VOLUME 8.8 fl (7.4-10.4); PLATELET 80 x1000/uL (130-400); RED BLOOD CELL COUNT 4.84 mill/uL (4.7-6.1); RED CELL DISTRIBUTION WIDTH 17.6 % (11.6-14.6)
[2019-03-02 09:02] LABS: CHLORIDE 108 mEq/L (98-107)
[2019-03-02 09:09] LABS: PHOSPHORUS 2.2 mg/dL (2.5-4.9)
[2019-03-02] MEDS ORDERED: LORAZEPAM 2MG/ML CPJ IV NR ×3 (09:30→13:15)
[2019-03-02] MEDS ORDERED: FUROSEMIDE 20MG/2ML VIAL IVP NR (10:00)
[2019-03-02] MEDS: CEFEPIME 1,000 MG in DEXTROSE 5% WATER 50 ML IV SCH ×2 (10:02→23:58)
[2019-03-02] MEDS: FLUCONAZOLE 200 MG/100ML BAG 100 ML IV SCH (10:57)
[2019-03-02] MEDS ORDERED: POTASSIUM PHOS,M-BASIC-D-BASIC 10 MMOL in DEXT 5% WATER 246.6667 ML IV NR (11:30)
[2019-03-02 12:37] LABS: PLATELET ESTIMATE DECREASED
[2019-03-02 13:22] LABS: BG BASE EXCESS -0.4 mmol/L (-2.0-2.0); BG CARBOXYHEMOGLOBIN 0.4 % (0.5-1.5); BG FRACTION INSPIRED OXYGEN 40; BG HCO3 ACT 22.7 mmol/L (22.0-26.0); BG METHEMOGLOBIN 0.3 % (0.0-1.5); BG OXYHEMOGLOBIN 93.3 % (94.0-97.0); BG PCO2 33.4 mmHg (35.0-45.0); BG PH 7.451 (7.350-7.450); BG PO2 70.1 mmHg (75.0-100.0); BG PRESSURE SUPPORT 8; BG SAMPLE SITE RIGHT RADIAL; BG TOTAL HEMOGLOBIN 16.3 g/dL (12.0-18.0); BG VENT MODE VENT - CPAP
[2019-03-02] MEDS ORDERED: RACEPINEPHRINE 2.25% 0.5ML NEB VIAL HHN PRN (13:30)
[2019-03-02] MEDS: METHYLPREDNISOLONE SOD SUCC 40 MG/ML VIAL IV SCH ×2 (13:54→21:24)
[2019-03-02] MEDS ORDERED: RACEPINEPHRINE 2.25% 0.5ML NEB VIAL HHN NR (14:00)
[2019-03-02] MEDS: LORAZEPAM 2MG/ML CPJ IV PRN ×2 (14:50→20:29)
[2019-03-02] MEDS: MONTELUKAST SODIUM 10MG TABLET NG SCH (16:27)
[2019-03-02 17:44] LABS: BG BASE EXCESS -0.5 mmol/L (-2.0-2.0); BG CARBOXYHEMOGLOBIN 0.3 % (0.5-1.5); BG DEOXYHEMOGLOBIN 6.4 % (0.0-5.0); BG FRACTION INSPIRED OXYGEN 98; BG HCO3 ACT 21.7 mmol/L (22.0-26.0); BG METHEMOGLOBIN 0.4 % (0.0-1.5); BG OXYGEN SATURATION 93.6 % (92.0-98.5); BG OXYHEMOGLOBIN 92.9 % (94.0-97.0); BG PH 7.478 (7.350-7.450); BG SAMPLE SITE RIGHT RADIAL; BG TOTAL HEMOGLOBIN 16.3 g/dL (12.0-18.0); BG VENT MODE MASK - AEROSOL
[2019-03-02] MEDS: INSULIN GLARGINE UD 100 UNITS/ML SYR SUBCUT SCH (21:25)
[2019-03-03] VITALS (45 sets, daily range): BP systolic 97–173; BP diastolic 24–115
[2019-03-03] MEDS: METOCLOPRAMIDE HCL 10MG/2ML VIAL IV SCH ×4 (00:05→17:49)
[2019-03-03] MEDS: BLOOD SUGAR DIAGNOSTIC STRIP TEST SCH ×4 (00:16→17:42)
[2019-03-03] MEDS: INSULIN LISPRO 100 UNITS/ML SUBCUT SCH ×4 (00:22→17:49)
[2019-03-03] MEDS: ACETYLCYSTEINE 100MG/ML 10% VIAL 4ML INH SCH ×3 (00:51→16:40)
[2019-03-03] MEDS: ALBUTEROL (0.083%) 2.5MG/3ML NEB HHN SCH ×6 (00:51→20:46)
[2019-03-03] MEDS: METRONIDAZOLE 500 MG PREMIX 100 ML IV SCH ×3 (02:32→19:28)
[2019-03-03] MEDS: LORAZEPAM 2MG/ML CPJ IV PRN (02:32)
[2019-03-03] MEDS: METHYLPREDNISOLONE SOD SUCC 40 MG/ML VIAL IV SCH (05:37)
[2019-03-03 06:08] LABS: CHLORIDE 105 mEq/L (98-107)
[2019-03-03 06:21] LABS: PHOSPHORUS 2.3 mg/dL (2.5-4.9)
[2019-03-03] MEDS: FAMOTIDINE 20MG/2ML VIAL IV SCH ×2 (08:42→21:23)
[2019-03-03] MEDS: CARVEDILOL 3.125 MG TABLET NG SCH ×2 (08:42→21:00)
[2019-03-03] MEDS: ASPIRIN 325MG TABLET PO SCH (08:42)
[2019-03-03] MEDS: FUROSEMIDE 20MG/2ML VIAL IVP SCH ×2 (08:42→17:49)
[2019-03-03] MEDS ORDERED: POTASSIUM CHLORIDE 20MEQ/PACKET PO SCH (09:45)
[2019-03-03] MEDS ORDERED: LACTULOSE 20G/30ML UDC PO NR (10:00)
[2019-03-03] MEDS: CEFEPIME 1,000 MG in DEXTROSE 5% WATER 50 ML IV SCH ×2 (10:53→22:22)
[2019-03-03] MEDS: DOCUSATE SODIUM 100MG CAPSULE PO SCH ×2 (10:53→17:49)
[2019-03-03] MEDS ORDERED: POTASSIUM PHOS,M-BASIC-D-BASIC 15 MMOL in DEXT 5% WATER 245 ML IV SCH (11:00)
[2019-03-03] MEDS: QUETIAPINE FUMARATE 25MG TABLET PO SCH (11:00)
[2019-03-03] MEDS ORDERED: KCL 20MEQ/100ML PREMIX 100 ML IV NR (11:00)
[2019-03-03] MEDS: AZITHROMYCIN 500MG in DEXTROSE 5% WATER 250ML IV SCH (11:11)
[2019-03-03] MEDS: FLUCONAZOLE 200 MG/100ML BAG 100 ML IV SCH (13:09)
[2019-03-03] MEDS: MONTELUKAST SODIUM 10MG TABLET NG SCH (17:49)
[2019-03-03] MEDS: INSULIN GLARGINE UD 100 UNITS/ML SYR SUBCUT SCH (21:54)
[2019-03-04] VITALS (12 sets, daily range): BP systolic 90–131; BP diastolic 52–75
[2019-03-04] MEDS: METOCLOPRAMIDE HCL 10MG/2ML VIAL IV SCH ×2 (00:06→05:38)
[2019-03-04] MEDS: BLOOD SUGAR DIAGNOSTIC STRIP TEST SCH ×4 (00:14→18:56)
[2019-03-04] MEDS: ALBUTEROL (0.083%) 2.5MG/3ML NEB HHN SCH ×5 (00:40→20:50)
[2019-03-04] MEDS: ACETYLCYSTEINE 100MG/ML 10% VIAL 4ML INH SCH ×3 (00:40→15:26)
[2019-03-04] MEDS: LORAZEPAM 2MG/ML CPJ IV PRN (02:14)
[2019-03-04] MEDS: METRONIDAZOLE 500 MG PREMIX 100 ML IV SCH ×3 (02:14→18:56)
[2019-03-04] MEDS: INSULIN LISPRO 100 UNITS/ML SUBCUT SCH ×4 (05:38→18:57)
[2019-03-04 06:12] LABS: HEMATOCRIT. 41.9 % (42.0-52.0); HEMOGLOBIN. 13.9 g/dL (14.0-18.0); MEAN CORPUSCULAR HEMOGLOBIN 29.7 pg (28.0-32.0); MEAN CORPUSCULAR VOLUME 89.7 fL (80.0-94.0); MEAN PLATELET VOLUME 8.8 fl (7.4-10.4); PLATELET 76 x1000/uL (130-400); RED BLOOD CELL COUNT 4.67 mill/uL (4.7-6.1); RED CELL DISTRIBUTION WIDTH 17.2 % (11.6-14.6)
[2019-03-04 06:14] LABS: CHLORIDE 104 mEq/L (98-107)
[2019-03-04] MEDS ORDERED: METHYLPREDNISOLONE SOD SUCC 40 MG/ML VIAL IV SCH (09:00)
[2019-03-04] MEDS: ASPIRIN 325MG TABLET PO SCH (09:00)
[2019-03-04] MEDS: FUROSEMIDE 20MG/2ML VIAL IVP SCH ×2 (09:27→18:09)
[2019-03-04] MEDS: DOCUSATE SODIUM 100MG CAPSULE PO SCH ×2 (09:27→18:09)
[2019-03-04] MEDS: FAMOTIDINE 20MG/2ML VIAL IV SCH ×2 (09:27→21:40)
[2019-03-04] MEDS: CARVEDILOL 3.125 MG TABLET NG SCH ×2 (09:27→21:40)
[2019-03-04] MEDS: QUETIAPINE FUMARATE 25MG TABLET PO SCH (09:28)
[2019-03-04] MEDS: AZITHROMYCIN 500MG in DEXTROSE 5% WATER 250ML IV SCH (09:39)
[2019-03-04] MEDS ORDERED: POTASSIUM CHLORIDE 20MEQ/PACKET NG NR (09:45)
[2019-03-04 10:41] LABS: PLATELET ESTIMATE DECREASED
[2019-03-04] MEDS ORDERED: FLUMAZENIL 0.1 MG/ML 5ML VIAL IV ONE ×2 (11:45→12:03)
[2019-03-04 12:11] LABS: BG BASE EXCESS 2.9 mmol/L (-2.0-2.0); BG CARBOXYHEMOGLOBIN 0.4 % (0.5-1.5); BG FRACTION INSPIRED OXYGEN 35; BG HCO3 ACT 26.7 mmol/L (22.0-26.0); BG METHEMOGLOBIN 0.3 % (0.0-1.5); BG OXYHEMOGLOBIN 97.3 % (94.0-97.0); BG PH 7.464 (7.350-7.450); BG PO2 112.3 mmHg (75.0-100.0); BG SAMPLE SITE RIGHT RADIAL; BG TOTAL HEMOGLOBIN 13.5 g/dL (12.0-18.0); BG VENT MODE MASK - AEROSOL
[2019-03-04] MEDS: CEFEPIME 1,000 MG in DEXTROSE 5% WATER 50 ML IV SCH ×2 (12:49→23:14)
[2019-03-04] MEDS: FLUCONAZOLE 200 MG/100ML BAG 100 ML IV SCH (18:09)
[2019-03-04] MEDS: MONTELUKAST SODIUM 10MG TABLET NG SCH (18:09)
[2019-03-04] MEDS: INSULIN GLARGINE UD 100 UNITS/ML SYR SUBCUT SCH (21:41)
[2019-03-05] VITALS (11 sets, daily range): BP systolic 90–115; BP diastolic 54–87
[2019-03-05] MEDS: INSULIN LISPRO 100 UNITS/ML SUBCUT SCH ×4 (00:26→17:40)
[2019-03-05] MEDS: ALBUTEROL (0.083%) 2.5MG/3ML NEB HHN SCH ×5 (00:35→20:15)
[2019-03-05] MEDS: ACETYLCYSTEINE 100MG/ML 10% VIAL 4ML INH SCH ×3 (00:35→15:50)
[2019-03-05] MEDS: METRONIDAZOLE 500 MG PREMIX 100 ML IV SCH ×3 (02:05→17:39)
[2019-03-05] MEDS: BLOOD SUGAR DIAGNOSTIC STRIP TEST SCH ×4 (06:00→17:40)
[2019-03-05 06:25] LABS: CHLORIDE 105 mEq/L (98-107)
[2019-03-05 06:38] LABS: HEMATOCRIT. 42.1 % (42.0-52.0); HEMOGLOBIN. 14.3 g/dL (14.0-18.0); MEAN CORPUSCULAR HEMOGLOBIN 30.3 pg (28.0-32.0); MEAN PLATELET VOLUME 8.8 fl (7.4-10.4); PLATELET 70 x1000/uL (130-400); RED BLOOD CELL COUNT 4.73 mill/uL (4.7-6.1); RED CELL DISTRIBUTION WIDTH 18.1 % (11.6-14.6)
[2019-03-05] MEDS ORDERED: POTASSIUM CHLORIDE 20MEQ/PACKET NG SCH (08:00)
[2019-03-05] MEDS: DOCUSATE SODIUM 100MG CAPSULE PO SCH (09:00)
[2019-03-05] MEDS: FAMOTIDINE 20MG/2ML VIAL IV SCH ×2 (09:29→21:15)
[2019-03-05] MEDS: AZITHROMYCIN 500MG in DEXTROSE 5% WATER 250ML IV SCH (09:29)
[2019-03-05] MEDS: CARVEDILOL 3.125 MG TABLET NG SCH ×2 (09:30→21:00)
[2019-03-05] MEDS: FUROSEMIDE 20MG/2ML VIAL IVP SCH ×2 (09:30→17:39)
[2019-03-05] MEDS: FLUCONAZOLE 200 MG/100ML BAG 100 ML IV SCH (11:40)
[2019-03-05 12:12] LABS: PLATELET ESTIMATE DECREASED
[2019-03-05] MEDS: CEFEPIME 1,000 MG in DEXTROSE 5% WATER 50 ML IV SCH ×2 (13:12→22:47)
[2019-03-05] MEDS: DOCUSATE SODIUM SUGAR FREE 100MG/10ML UDC NG SCH (17:39)
[2019-03-05] MEDS: MONTELUKAST SODIUM 10MG TABLET NG SCH (17:39)
[2019-03-05] MEDS: NYSTATIN POWDER 15GM TOP SCH (18:23)
[2019-03-05] MEDS: INSULIN GLARGINE UD 100 UNITS/ML SYR SUBCUT SCH (22:47)
[2019-03-06] VITALS (14 sets, daily range): BP systolic 91–134; BP diastolic 45–111
[2019-03-06] MEDS: ALBUTEROL (0.083%) 2.5MG/3ML NEB HHN SCH ×6 (00:02→20:10)
[2019-03-06] MEDS: BLOOD SUGAR DIAGNOSTIC STRIP TEST SCH ×3 (00:26→11:19)
[2019-03-06] MEDS: INSULIN LISPRO 100 UNITS/ML SUBCUT SCH ×3 (06:00→12:00)
[2019-03-06 08:25] LABS: HEMATOCRIT. 42.2 % (42.0-52.0); HEMOGLOBIN. 14.2 g/dL (14.0-18.0); MEAN CORPUSCULAR HEMOGLOBIN 30.1 pg (28.0-32.0); MEAN CORPUSCULAR VOLUME 89.4 fL (80.0-94.0); MEAN PLATELET VOLUME 10.7 fl (7.4-10.4); PLATELET 70 x1000/uL (130-400); RED BLOOD CELL COUNT 4.72 mill/uL (4.7-6.1); RED CELL DISTRIBUTION WIDTH 18.2 % (11.6-14.6)
[2019-03-06 08:55] LABS: CHLORIDE 102 mEq/L (98-107)
[2019-03-06] MEDS: FAMOTIDINE 20MG/2ML VIAL IV SCH ×2 (09:34→21:37)
[2019-03-06] MEDS: DOCUSATE SODIUM SUGAR FREE 100MG/10ML UDC NG SCH ×3 (09:34→18:07)
[2019-03-06] MEDS: CARVEDILOL 3.125 MG TABLET NG SCH ×2 (09:35→21:37)
[2019-03-06] MEDS: NYSTATIN POWDER 15GM TOP SCH ×3 (09:37→18:08)
[2019-03-06] MEDS ORDERED: KCL 20MEQ/100ML PREMIX 100 ML IV NR (10:00)
[2019-03-06] MEDS: FUROSEMIDE 20MG/2ML VIAL IVP SCH ×2 (11:18→18:07)
[2019-03-06 11:41] LABS: PLATELET ESTIMATE DECREASED
[2019-03-06] MEDS: MONTELUKAST SODIUM 10MG TABLET NG SCH (18:07)
[2019-03-06] MEDS: INSULIN GLARGINE UD 100 UNITS/ML SYR SUBCUT SCH (21:38)
[2019-03-07] VITALS (12 sets, daily range): BP systolic 97–123; BP diastolic 58–82
[2019-03-07] MEDS: ALBUTEROL (0.083%) 2.5MG/3ML NEB HHN SCH ×6 (00:20→21:47)
[2019-03-07] MEDS: FUROSEMIDE 20MG/2ML VIAL IVP SCH ×2 (06:56→17:35)
[2019-03-07 08:12] LABS: HEMATOCRIT. 46.1 % (42.0-52.0); HEMOGLOBIN. 15.6 g/dL (14.0-18.0); MEAN CORPUSCULAR HEMOGLOBIN 30.3 pg (28.0-32.0); MEAN CORPUSCULAR VOLUME 89.6 fL (80.0-94.0); PLATELET 63 x1000/uL (130-400); RED BLOOD CELL COUNT 5.15 mill/uL (4.7-6.1); RED CELL DISTRIBUTION WIDTH 18.2 % (11.6-14.6)
[2019-03-07 08:30] LABS: CHLORIDE 98 mEq/L (98-107)
[2019-03-07] MEDS: DOCUSATE SODIUM SUGAR FREE 100MG/10ML UDC NG SCH ×2 (09:35→16:52)
[2019-03-07] MEDS: CARVEDILOL 3.125 MG TABLET NG SCH ×2 (09:35→21:33)
[2019-03-07] MEDS: FAMOTIDINE 20MG/2ML VIAL IV SCH ×2 (09:35→21:32)
[2019-03-07] MEDS: NYSTATIN POWDER 15GM TOP SCH ×3 (09:36→17:35)
[2019-03-07 13:21] LABS: PLATELET ESTIMATE SLIGHTLY DECREASED
[2019-03-07] MEDS: BLOOD SUGAR DIAGNOSTIC STRIP TEST SCH ×2 (16:52→21:00)
[2019-03-07] MEDS: INSULIN LISPRO 100 UNITS/ML SUBCUT SCH ×2 (16:53→21:00)
[2019-03-07] MEDS: MONTELUKAST SODIUM 10MG TABLET NG SCH (17:34)
[2019-03-07] MEDS: INSULIN GLARGINE UD 100 UNITS/ML SYR SUBCUT SCH (21:35)
[2019-03-08] VITALS (11 sets, daily range): BP systolic 94–123; BP diastolic 52–85
[2019-03-08] MEDS: ALBUTEROL (0.083%) 2.5MG/3ML NEB HHN SCH ×6 (01:20→21:00)
[2019-03-08] MEDS: BLOOD SUGAR DIAGNOSTIC STRIP TEST SCH ×4 (06:50→21:00)
[2019-03-08] MEDS: FUROSEMIDE 20MG/2ML VIAL IVP SCH ×2 (07:01→17:14)
[2019-03-08] MEDS: INSULIN LISPRO 100 UNITS/ML SUBCUT SCH ×4 (07:20→21:00)
[2019-03-08] MEDS: FAMOTIDINE 20MG/2ML VIAL IV SCH ×2 (08:55→22:01)
[2019-03-08] MEDS: CARVEDILOL 3.125 MG TABLET NG SCH ×2 (08:55→22:02)
[2019-03-08] MEDS: DOCUSATE SODIUM SUGAR FREE 100MG/10ML UDC NG SCH ×2 (08:55→17:00)
[2019-03-08] MEDS: NYSTATIN POWDER 15GM TOP SCH ×3 (08:55→17:14)
[2019-03-08] MEDS: MONTELUKAST SODIUM 10MG TABLET NG SCH (17:13)
[2019-03-08] MEDS: INSULIN GLARGINE UD 100 UNITS/ML SYR SUBCUT SCH (22:05)
[2019-03-08] MEDS ORDERED: LORAZEPAM 2MG/ML CPJ IV PRN (23:00)
[2019-03-08] MEDS ORDERED: QUETIAPINE FUMARATE 50MG TABLET PO SCH (23:00)
[2019-03-08] MEDS ORDERED: DIPHENHYDRAMINE 50MG/ML VIAL IV PRN (23:00)
[2019-03-09] VITALS (11 sets, daily range): BP systolic 89–139; BP diastolic 50–84
[2019-03-09] MEDS: BLOOD SUGAR DIAGNOSTIC STRIP TEST SCH ×4 (06:50→21:34)
[2019-03-09 06:58] LABS: HEMATOCRIT. 43.1 % (42.0-52.0); HEMOGLOBIN. 14.6 g/dL (14.0-18.0); MEAN CORPUSCULAR HEMOGLOBIN 30.3 pg (28.0-32.0); MEAN CORPUSCULAR VOLUME 89.6 fL (80.0-94.0); MEAN PLATELET VOLUME 9.4 fl (7.4-10.4); PLATELET 72 x1000/uL (130-400); RED BLOOD CELL COUNT 4.81 mill/uL (4.7-6.1)
[2019-03-09] MEDS: INSULIN LISPRO 100 UNITS/ML SUBCUT SCH ×5 (07:20→21:00)
[2019-03-09] MEDS: DEXTROSE 50% WATER 50ML SYRINGE IV PRN ×3 (07:24→16:47)
[2019-03-09] MEDS: ALBUTEROL (0.083%) 2.5MG/3ML NEB HHN SCH ×3 (08:07→21:45)
[2019-03-09] MEDS: FAMOTIDINE 20MG/2ML VIAL IV SCH ×2 (08:16→21:45)
[2019-03-09 08:17] LABS: CHLORIDE 99 mEq/L (98-107)
[2019-03-09] MEDS: QUETIAPINE FUMARATE 50MG TABLET PO SCH ×2 (08:17→21:35)
[2019-03-09] MEDS: CARVEDILOL 3.125 MG TABLET NG SCH ×2 (08:17→21:35)
[2019-03-09] MEDS: FUROSEMIDE 20MG/2ML VIAL IVP SCH ×2 (08:17→17:08)
[2019-03-09] MEDS: DOCUSATE SODIUM SUGAR FREE 100MG/10ML UDC NG SCH ×2 (08:18→16:26)
[2019-03-09] MEDS: NYSTATIN POWDER 15GM TOP SCH ×3 (08:19→16:40)
[2019-03-09 12:29] LABS: PLATELET ESTIMATE DECREASED
[2019-03-09] MEDS: MONTELUKAST SODIUM 10MG TABLET NG SCH (16:28)
[2019-03-09] MEDS: INSULIN GLARGINE UD 100 UNITS/ML SYR SUBCUT SCH (21:46)
[2019-03-10 00:21] VITALS: BP 115/81
[2019-03-10] MEDS: ALBUTEROL (0.083%) 2.5MG/3ML NEB HHN SCH ×6 (01:23→20:48)
[2019-03-10 04:00] VITALS: BP 113/71
[2019-03-10] MEDS: BLOOD SUGAR DIAGNOSTIC STRIP TEST SCH ×4 (06:06→21:00)
[2019-03-10] MEDS: FUROSEMIDE 20MG/2ML VIAL IVP SCH (06:07)
[2019-03-10 06:15] LABS: HEMATOCRIT. 43.5 % (42.0-52.0); HEMOGLOBIN. 14.9 g/dL (14.0-18.0); MEAN CORPUSCULAR HEMOGLOBIN 30.7 pg (28.0-32.0); MEAN CORPUSCULAR VOLUME 89.7 fL (80.0-94.0); MEAN PLATELET VOLUME 10.1 fl (7.4-10.4); PLATELET 72 x1000/uL (130-400); RED BLOOD CELL COUNT 4.85 mill/uL (4.7-6.1); RED CELL DISTRIBUTION WIDTH 18.9 % (11.6-14.6)
[2019-03-10 06:25] LABS: CHLORIDE 102 mEq/L (98-107)
[2019-03-10] MEDS: INSULIN LISPRO 100 UNITS/ML SUBCUT SCH ×4 (06:43→21:00)
[2019-03-10 08:00] VITALS: BP 105/91
[2019-03-10] MEDS: QUETIAPINE FUMARATE 50MG TABLET PO SCH ×2 (08:41→22:20)
[2019-03-10] MEDS: FAMOTIDINE 20MG/2ML VIAL IV SCH ×2 (08:42→22:18)
[2019-03-10] MEDS: CARVEDILOL 3.125 MG TABLET NG SCH ×2 (08:43→22:19)
[2019-03-10] MEDS: DOCUSATE SODIUM SUGAR FREE 100MG/10ML UDC NG SCH ×2 (08:43→16:52)
[2019-03-10] MEDS: NYSTATIN POWDER 15GM TOP SCH ×3 (08:44→16:52)
[2019-03-10 12:00] VITALS: BP 110/88
[2019-03-10 16:00] VITALS: BP 106/64
[2019-03-10] MEDS: MONTELUKAST SODIUM 10MG TABLET NG SCH (16:51)
[2019-03-10] MEDS: FUROSEMIDE 40MG TABLET PO SCH (16:51)
[2019-03-10 17:39] LABS: PLATELET ESTIMATE DECREASED
[2019-03-10 20:36] VITALS: BP 96/67
[2019-03-10] MEDS: INSULIN GLARGINE UD 100 UNITS/ML SYR SUBCUT SCH (22:17)
[2019-03-11 00:18] VITALS: BP 102/69
[2019-03-11] MEDS: POLYVINYL ALCOHOL OPHTH DROPS 15ML BOTHEYE SCH ×3 (00:39→11:16)
[2019-03-11] MEDS: ALBUTEROL (0.083%) 2.5MG/3ML NEB HHN SCH ×5 (00:45→15:27)
[2019-03-11 04:00] VITALS: BP 125/86
[2019-03-11 06:09] LABS: HEMATOCRIT. 39.9 % (42.0-52.0); HEMOGLOBIN. 13.3 g/dL (14.0-18.0); MEAN CORPUSCULAR HEMOGLOBIN 30.2 pg (28.0-32.0); MEAN CORPUSCULAR VOLUME 90.6 fL (80.0-94.0); MEAN PLATELET VOLUME 9.4 fl (7.4-10.4); PLATELET 66 x1000/uL (130-400); RED CELL DISTRIBUTION WIDTH 18.9 % (11.6-14.6)
[2019-03-11 06:21] LABS: CHLORIDE 101 mEq/L (98-107)
[2019-03-11 08:44] VITALS: BP 103/71
[2019-03-11] MEDS: CARVEDILOL 3.125 MG TABLET NG SCH (09:14)
[2019-03-11] MEDS: QUETIAPINE FUMARATE 50MG TABLET PO SCH (09:15)
[2019-03-11] MEDS: FUROSEMIDE 40MG TABLET PO SCH (09:16)
[2019-03-11] MEDS: FAMOTIDINE 20MG/2ML VIAL IV SCH (09:16)
[2019-03-11] MEDS: DOCUSATE SODIUM SUGAR FREE 100MG/10ML UDC NG SCH (09:16)
[2019-03-11] MEDS: NYSTATIN POWDER 15GM TOP SCH ×2 (09:17→12:09)
[2019-03-11] MEDS: BLOOD SUGAR DIAGNOSTIC STRIP TEST SCH (11:24)
[2019-03-11] MEDS: INSULIN LISPRO 100 UNITS/ML SUBCUT SCH (11:25)
[2019-03-11 11:48] VITALS: BP 103/67
[2019-03-11] MEDS ORDERED: ASPIRIN 81MG EC TABLET PO SCH (13:15)
[2019-03-11 15:57] VITALS: BP 105/69
[2019-03-11 19:42] LABS: PLATELET ESTIMATE DECREASED
== END 2019-03-11 17:00 | disposition left against medical advice (07) | DRG 870 ==
LOC: ER 04:03 → MICUSO 06:15 → EDBEDREQ 06:20 → EDBEDREQTM 06:20 → SUPCPDRO 07:30 → ENRESERV 16:11 → MICUSO 02-26 18:30 → 3WST 03-03 16:33 → 8WST 03-09 17:31
PROVIDERS: ADMIT Obstetrics & Gynecology; ATTEND Internal Medicine
PROC: 5A1955Z Respiratory Ventilation, Greater than 96 Consecutive Hours (ICD-10-PCS; principal; 2019-02-22)
PROC: 0BH17EZ Insertion of Endotracheal Airway into Trachea, Via Natural or Artificial Opening (ICD-10-PCS; 2019-02-22)
PROC: 02HV33Z Insertion of Infusion Device into Superior Vena Cava, Percutaneous Approach (ICD-10-PCS; 2019-02-22)
PROC: B548ZZA Ultrasonography of Superior Vena Cava, Guidance (ICD-10-PCS; 2019-02-22)
DX: A41.9 Sepsis, unspecified organism (principal); J96.00 Acute respiratory failure, unspecified whether with hypoxia or hypercapnia; I50.23 Acute on chronic systolic (congestive) heart failure; J69.0 Pneumonitis due to inhalation of food and vomit; J96.01 Acute respiratory failure with hypoxia; I21.4 Non-ST elevation (NSTEMI) myocardial infarction; E87.2 Acidosis; E46 Unspecified protein-calorie malnutrition; I42.9 Cardiomyopathy, unspecified; T78.3XXA Angioneurotic edema, initial encounter; T46.4X5A Adverse effect of angiotensin-converting-enzyme inhibitors, initial encounter; Z85.038 Personal history of other malignant neoplasm of large intestine; G71.00 Muscular dystrophy, unspecified; E11.65 Type 2 diabetes mellitus with hyperglycemia; Z99.3 Dependence on wheelchair; E78.5 Hyperlipidemia, unspecified; D69.6 Thrombocytopenia, unspecified; E87.6 Hypokalemia; I25.10 Atherosclerotic heart disease of native coronary artery without angina pectoris; I48.0 Paroxysmal atrial fibrillation; I11.0 Hypertensive heart disease with heart failure; Z78.1 Physical restraint status; Z79.899 Other long term (current) drug therapy; Z82.49 Family history of ischemic heart disease and other diseases of the circulatory system; Z95.810 Presence of automatic (implantable) cardiac defibrillator; Z53.21 Procedure and treatment not carried out due to patient leaving prior to being seen by health care provider
CPT/HCPCS: 36415; 36600; 71045; 74018; 76937; 80048; 80061; 80162; 82140; 82375; 82805; 82962; 83036; 83735; 83880; 84100; 84145; 84478; 84484; 86161; 92610; 93005; 93306; 93970; 94002; 94003; 94640; 94667; 96374; 97161; 97164; 97167; 97530; 97535; 99285; A6261; C1725; J0330; J0456; J0692; J1200; J1450; J1650; J1815; J1940; J2060; J2250; J2704; J2765; J2920; J2930; J3010; J3480; J3490; J7040; J7050; J7060; J7608; J7611; J7620; A4315